=== PATIENT | female | born 1965 | race Caucasian/White ===

== ENCOUNTER → 2017-03-11 | Outpatient (CLI) | payer BC ==
[~2017-03-11] MED LIST: LISI-461 PO; NAPR1TAB9 PO
[2017-03-11 14:44] LABS: FERRITIN 3.9 ng/ml (8.0-388.0); RHEUMATOID FACTOR < 10.0 U/mL (0-15); THYROID STIMULATING HORMONE 0.883 uIu/ml (0.300-4.500)
[2017-03-11 15:26] LABS: LYME DISEASE AB IGG NEG (NEG)
[2017-03-11 15:29] LABS: LYME DISEASE AB IGM NEG (NEG)
[2017-03-11 16:56] LABS: BASO % 0.1 %; BASO ABS # 0.01 K/uL (0-0.2); COMPLETE YES; EOS % 2.8 %; HEMATOCRIT 44.3 % (37-47); IG% 0.1 %; LYMPH % 25.6 %; MEAN CELL VOLUME 78.5 fL (80-100); MEAN CORPUSCULAR HEMOGLOBIN 24.1 pg (25-34); MEAN CORPUSCULAR HGB CONC 30.7 g/dl (32-36); MEAN PLATELET VOLUME 10.3 fL (7.4-10.4); MONO % 6.5 %; NEUT % 64.9 %; PLATELET COUNT 308 K/uL (130-400); RED BLOOD COUNT 5.64 M/uL (4.2-5.4); WHITE BLOOD COUNT 7.43 K/uL (4.8-10.8)
--- NOTE | 2017-03-15 11:14 | CODING QUERY MEDICAL NECESSITY ---
SUPPORTING DIAGNOSIS NEEDED A supporting diagnosis is required for the test/procedure performed on this patient in order for us to be reimbursed by the patient's insurance. Please provide a supporting diagnosis for the following test/procedure listed below next to the test name along with your signature. *If there is no additional diagnosis for this patient that would support the following test/procedure please document that below next to the test/procedure. Test(s)/Procedure(s) that require a supporting diagnosis: * VITAMIN , 25- HYDROXY DIAGNOSIS: Provider Signature: Date: Thank you Rosa Jacobs [employer] Once completed, please kindly fax back to [phone] For questions please call [phone]
== END | disposition home or self-care (01) ==
LOC: C.LABBC 11:42
PROVIDERS: ATTEND Physician Assistant Medical
DX: R20.2 Paresthesia of skin (principal); R20.8 Other disturbances of skin sensation

== ENCOUNTER → 2017-04-26 | Day surgery (SDC) | payer BC ==
[~2017-04-26] VITALS: Ht 165.1 cm; Wt 66.0 kg
[2017-04-26] VITALS (11 sets, daily range): BP systolic 98–142; BP diastolic 62–88; PULSE 70–91; TEMP 36.8–37.3; O2SAT 95–100; Ht 165.1 cm; Wt 66.0 kg
[~2017-04-26] MED LIST changes: +ACETAMINOPHEN 500 MG TAB PO PRN; +GADAVIST IV PRN
--- NOTE | 2017-04-26 11:49 | DIAGNOSTIC IMAGING REPORT ---
MRI OF THE BRAIN WITHOUT AND WITH IV CONTRAST CLINICAL HISTORY: R20.2 progressive paresthesias. Involvement of both upper and lower extremities. History of both proximal injection in the neck. COMPARISON STUDY: No previous studies for comparison. TECHNIQUE: MRI of the brain was performed from the vertex to the skull base utilizing various T1 and T2 weighted sequences. Following the IV administration of 6.5 mL of Gadavist contrast, additional enhanced images were obtained. FINDINGS: Sagittal T1, axial diffusion, proton density and T2 weighted axial, coronal FLAIR, and pre and post axial T1-weighted images were acquired. These were supplemented with post gadolinium coronal T1 weighted images. No intra or extra-axial mass lesions are visualized. Axial diffusion-weighted images reveal no evidence of acute or subacute infarction. There is no evidence of ventricular dilatation. Proton density T2-weighted and FLAIR images reveal scattered nonspecific foci of increased T2 signal within the white matter. There are no abnormal flow voids. There is no evidence of pathologic enhancement. 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 IMPRESSION: 1. No evidence of intracranial mass 2. No evidence of acute or subacute infarction 3. Scattered nonspecific foci of increased T2 signal within the white matter. These are slightly more numerous than is typical for a patient this age. While possibly on a small vessel basis, a developing process cannot be excluded. A 6 month follow-up study might be considered to assess stability. Electronically signed by: Joe Singletary M.D. 04/26/2017 11:48 AM Dictated Date/Time: 04/26/2017 11:41 AM
--- NOTE | 2017-04-26 12:04 | DIAGNOSTIC IMAGING REPORT ---
CERVICAL SPINE COMBO HISTORY: Paresthesias. Neuropathy. R20.2 Paresthesias progressive paresthesias arms, waist down to t TECHNIQUE: Multiplanar multisequence MRI of the cervical spine was performed both before and after the use of intravenous contrast. COMPARISON STUDY: None. FINDINGS: Normal signal characteristics of the vertebral bodies as well as intervertebral disc. Normal signal characteristics of the cervical cord. C2-C3: No significant central canal or neural foraminal narrowing. C3-C4: Mild left lateral bulging disc. A mild narrowing left neuroforamina. C4-C5: No significant central canal or neural foraminal narrowing. C5-C6: Moderate osteophytic narrowing left neuroforamina. Mild left posterior disc bulge. C6-C7: No significant central canal or neural foraminal narrowing. C7-T1: No significant central canal or neural foraminal narrowing. IMPRESSION: 1. Mild scoliosis. 2. Normal signal characteristics of the vertebral bodies, intervertebral disc, and cervical cord. 3. No abnormal postcontrast enhancement. 4. Mild left lateral disc bulge C3-C4, moderate osteophytic narrowing left neuroforamina at C5-C6, with no evidence for significant disc herniation or a significant component of spinal stenosis.. The above report was generated using voice recognition software. It may contain grammatical, syntax or spelling errors. Electronically signed by: Logan Robledo M.D. 04/26/2017 12:02 PM Dictated Date/Time: 04/26/2017 11:57 AM
[2017-04-26 13:10] LABS: CSF TOTAL PROTEIN 49.6 mg/dl (15.0-45.0)
--- NOTE | 2017-04-26 13:11 | Discharge Instructions ---
Discharge Instructions Procedure Procedure Date: Apr 26, 2017. Reason for visit: Paresthesia *Sending Disc For Comparison*. Discharge Discharge Date: Apr 26, 2017. Discharge Diagnosis: Same Instructions Activity Recommendations: No limitations Return to School/Work: no limitations Recommended Home Diet: Resume Previous Diet Provider Instructions: ACTIVITY RECOMMENDATIONS: * Rest today. * Resume regular activity in one day. MEDICATIONS: * May take Tylenol or Ibuprofen as needed for pain. DIET: * Resume previous diet. SPECIAL CARE INSTRUCTIONS: Call your doctor if: * Temperature above 101 degrees F. * Pain not relieved by pain medicine ordered. * Increased drainage or redness from incision. * Notify your doctor with any questions or concerns. Call your doctor or go to the nearest Emergency Department if you experience: * Increased chest pain or shortness of breath. FOLLOW UP VISIT: Follow-up with Referring Physician as scheduled. Allergies Coded Allergies: No Known Allergies (Unverified , 04/26/17) Kari Saavedra Recommendations: Call your doctor if: * Temperature above 101 degrees * Pain not relieved by pain medicine ordered * There is increased drainage or redness from any incision * You have any unanswered questions or concerns. Your Doctors Instructions noted above were prepared by provider Noble Rojas. Patient Signature Section: Patient Instructions Signature Page Teresa Cordon Patient (or Guardian) Signature/Date: I have read and understand the instructions given to me by my caregivers. Caregiver/RN/Doctor Signature/Date: The above-named patient and/or guardian has received patient instructions on this date. + Original Patient Signature Page (only) stays with chart. Please make copy for patient.
--- NOTE | 2017-04-26 13:13 | DIAGNOSTIC IMAGING REPORT ---
LUMBAR PUNCTURE DIAGNOSTIC CLINICAL HISTORY: 51 years-old Female with chronic paresthesia.. PROCEDURE: The risks, benefits, and alternatives to the procedure is discussed with the patient who voiced understanding. Written informed consent was obtained. The patient was placed prone on the fluoroscopy table. The lower back was prepped and draped in the usual sterile fashion. 1% lidocaine was used for local anesthesia. A 20-gauge spinal needle was inserted into the L3-L4 interlaminar space, and approximately 10 cc of clear colorless cerebrospinal fluid was removed. The patient tolerated the procedure well. There were no immediate complications. The patient was then transported to the medical treatment unit for further observation. Fluoroscopy time: 0.7 Opening pressure recorded at 18 cm. IMPRESSION: Fluoroscopic guided lumbar puncture with removal of approximately 10 cc of cerebrospinal fluid. There were no immediate complications. The above report was generated using voice recognition software. It may contain grammatical, syntax or spelling errors. Electronically signed by: Seth Rojas M.D. 04/26/2017 1:12 PM Dictated Date/Time: 04/26/2017 1:11 PM
[2017-04-26 13:32] LABS: CSF APPEARANCE CLEAR; CSF COLOR COLORLESS
[2017-04-26 13:33] LABS: CSF XANTHOCHROMIC NO XANTHOCHROMIA
[2017-04-30 13:55] LABS: ALBUMIN 4.1 G/DL (3.8-4.8); GAMMA GLOBULIN 0.8 G/DL (0.8-1.7); IMMUNOFIXATION IGA SERUM 220 MG/DL (81-463); IMMUNOFIXATION IGG SERUM 831 MG/DL (694-1618); IMMUNOFIXATION IGM SERUM 43 MG/DL (48-271); METHYLMALONIC ACID 114 NMOL/L (87-318); TOTAL PROTEIN 6.7 G/DL (6.2-8.3)
[2017-05-01 09:29] LABS: ANA TITER 1:40 TITER (<1:40)
[2017-05-03 09:50] LABS: ALBUMIN 3.9 g/dL (3.5-4.9); IGG CSF 2.5 mg/dL (0.8-7.7); IGG SERUM 826 mg/dL (694-1618); LYME DNA PCR CSF OR SYNOVIAL Not detected (Not Detected); LYME DNA SOURCE CSF; LYME IGG CSF NO BANDS DETECTED; LYME IGM CSF NO BANDS DETECTED; MYELIN BASIC PROTEIN 663 <2.0 mcg/L (0.0-4.0)
== END | disposition home or self-care (01) ==
LOC: C.ACU 07:44
PROVIDERS: ATTEND Physician Assistant
DX: R20.2 Paresthesia of skin (principal)